=== PATIENT | female | born 1940 | race Caucasian/White ===

== ENCOUNTER 2019-09-16 05:38 | Day surgery (SDC) | payer MEDICARE ==
[2019-09-14 09:30] VITALS: BP 131/71
[2019-09-14 09:31] LABS: BASOPHILS % (AUTO) 0.7 % (0.0-5.0); EOSINOPHILS % (AUTO) 2.5 % (0.0-8.0); LYMPHOCYTES % (AUTO) 17.5 % (21.0-51.0); MEAN CORPUSCULAR HGB CONC 31.9 g/dL (32.0-36.0); MEAN CORPUSCULAR VOLUME 87.9 fL (79-99); MONOCYTES % (AUTO) 5.7 % (3.0-13.0); NEUTROPHILS % (AUTO) 73.5 % (40.0-77.0); PLATELET COUNT (AUTO) 287 K/uL (130-400); RED BLOOD CELL COUNT(AUTO) 5.35 MIL/uL (4.00-5.50); RED CELL DISTRIBUTION WIDTH 13.1 % (11.0-15.5); WHITE BLOOD COUNT (AUTO) 7.5 K/uL (4.8-10.8)
[2019-09-14 09:38] LABS: APPEARANCE,URINE Clear (CLEAR); BILIRUBIN,URINE Negative (NEGATIVE); COLOR,URINE Yellow (YELLOW); GLUCOSE, URINE (UA) Negative (NEGATIVE); KETONES,URINE Negative (NEGATIVE); LEUKOCYTE ESTERASE ,URINE Moderate (NEGATIVE); NITRATE,URINE Positive (NEGATIVE); OCCULT BLOOD,URINE Negative (NEGATIVE); PROTEIN,URINE Negative (NEGATIVE)
[2019-09-14 09:40] LABS: CREATININE 1.1 mg/dL (0.5-1.5)
[2019-09-14 09:42] LABS: INR 0.97 (0.85-1.15); PARTIAL THROMBOPLASTIN TIME 25.8 SEC (26.3-35.5); PROTHROMBIN TIME 10.2 SEC (9.6-11.6)
[2019-09-14 10:03] LABS: BACTERIA,URINE Many /HPF (None Seen); RBC,URINE 0-1 /HPF (0-1)
--- NOTE | 2019-09-15 08:45 | NUR ---
UA INFORMED CI. LEIGH OF ABNORMAL UA. ORDERS RECEIVED TO SEND URINE FOR CULTURE. PROCEED WITH PLANNED PROCEDURE.
[~2019-09-16] VITALS: Ht 165.1 cm; Wt 73.5 kg
[2019-09-16] VITALS (12 sets, daily range): BP systolic 111–137; BP diastolic 51–80
[~2019-09-16 05:38] MED LIST: ASPI-1026 PO; EZET10TA13 PO; FA/M1TAB32 PO; FURO20TA4 PO; METO-391 PO; NITR0.4T50 SL; OMEG-148 PO; POTA-79 PO
[2019-09-16] MEDS ORDERED: SODIUM CHLORIDE 0.9% 1000ML 1,000 ML IV ONE (06:06)
[2019-09-16] MEDS ORDERED: HEPARIN SODIUM 1000UNIT/ML 10ML VIAL ONE (07:11)
[2019-09-16] MEDS ORDERED: NITROGLYCERIN 1 MG/VIAL VIAL IV ONE (07:12)
[2019-09-16] MEDS ORDERED: IOHEXOL-350 50ML VIAL IV ONE ×2 (07:12→07:39)
[2019-09-16] MEDS ORDERED: MEPERIDINE-PF 25 MG/ML SYG ONE ×2 (07:12→08:04)
[2019-09-16] MEDS ORDERED: IOHEXOL 350 MG/ML 100ML INFUS..BTL IV ONE ×2 (07:12→07:20)
[2019-09-16] MEDS ORDERED: MIDAZOLAM HCL 1 MG/ML 2ML VIAL ONE ×2 (07:12→08:04)
--- NOTE | 2019-09-16 07:20 | NUR ---
PROCEDURE PT TAKEN TO [facility] [facility]KER FOR SCHEDULED PROCEDURE. SPOUSE AT BEDSIDE.
[2019-09-16] MEDS ORDERED: SODIUM BICARB 50MEQ 50ML VIAL ONE (07:23)
[2019-09-16] MEDS ORDERED: LIDOCAINE HCL 2% 20ML ONE ×2 (07:32→08:08)
[2019-09-16] MEDS ORDERED: METOPROLOL TARTRATE 1 MG/ML 5ML VIAL IV ONE (08:23)
[2019-09-16] MEDS ORDERED: ACETAMINOPHEN-CODEINE 300/30MG TAB PO PRN ×2 (08:45)
--- NOTE | 2019-09-16 09:15 | NUR ---
POST RECEIVED PT FROM [facility] , S/P RIGHT / LHC AND AORTIC ROOT ANGIOGRAM , RIGHT GROIN WITH PERCLOSE CLOSURE DEVICE DRESSING . NO BLEEDING OR HEMATOMA TO SITE. SEE POST CATH ASSESSMENT. VS STABLE. PLAN OF CARE DISCUSS WITH PATIENT / SPOUSE. DR. Juan STALLINGS SPOKE TO PT/ SPOUSE ABOUT RESULTS OF PROCEDURE . PT INSTRUCTED TO MAINTAIN BEDREST FOR 4 HRS. CALL LIGHT WITHIN REACH.
--- NOTE | 2019-09-16 12:45 | NUR ---
CONSULT LARS SAMANIEGO RN WAS INFORMED AGAIN ABOUT CONSULT WITH DR. MEHTA, SHE STATED THEY WILL COME SEE PATIENT TODAY. PATIENT/ SPOUSE STATED THEY WANT TO WAIT FOR DR. MEHTA TO SPEAK TO THEM
--- NOTE | 2019-09-16 14:00 | NUR ---
REPORT GIVEN BY SONYPT. V/S STABLE AND FAMILY AT BEDSIDE. NO HEMATOMA, NO BLEEDING, NO PAIN TO RT. GROIN AND PD INTACT BILATERALLY.
--- NOTE | 2019-09-16 15:50 | NUR ---
LARS AWARE THAT PT WANTED TO LEAVE AND GO HOME. LARS STATED IT WAS OK FOR PATIENT TO BE D/C TO GO HOME. F/U APPT WITH DR. MEHTA IS 09-28- @ 11:00 AM.
--- NOTE | 2019-09-16 16:20 | NUR ---
PT LEFT VIA WHEELCHAIR IN PVT, CAR WITH D/C INSTRUCTIONS GIVEN TO SPOUSE AND F/U APPT'S. NO HEMATOMA, NO BLEEDING, NO PAIN TO RT. GROIN PD BILATERALLY INTACT. DRESSING DRY AND INTACT.
== END 2019-09-16 16:20 | disposition home or self-care (01) ==
LOC: DAH 05:38
PROVIDERS: ATTEND Internal Medicine Cardiovascular Disease
DX: I25.10 Atherosclerotic heart disease of native coronary artery without angina pectoris (principal); I34.2 Nonrheumatic mitral (valve) stenosis; I27.20 Pulmonary hypertension, unspecified; I10 Essential (primary) hypertension; E78.5 Hyperlipidemia, unspecified; Z79.899 Other long term (current) drug therapy; Z79.82 Long term (current) use of aspirin; Z86.73 Personal history of transient ischemic attack (TIA), and cerebral infarction without residual deficits; Z98.49 Cataract extraction status, unspecified eye; Z90.710 Acquired absence of both cervix and uterus; Z72.89 Other problems related to lifestyle; Z82.49 Family history of ischemic heart disease and other diseases of the circulatory system; Z79.84 Long term (current) use of oral hypoglycemic drugs
CPT/HCPCS: 36415; 71045; 80048; 81001; 85025; 85610; 85730; 87077; 87088; 87186; 93005; 93460; 93567; A4215; A4216; A4221; A4222; A4223 ×3; A4606; A4663; C1760; C1894 ×2; J1644; J2175; J2250; J3490 ×5; J7030; Q9965; Q9967 ×3; 99156; 99157